=== PATIENT | male | born 1995 | race Caucasian/White ===

== ENCOUNTER 2022-04-17 15:45 | Emergency (ER) | payer BC ==
[2022-04-17] MEDS: Acetaminophen/oxyCODONE 325-5 MG Tab PO ONE (17:04)
[2022-04-17] MEDS: Ketorolac 10 MG Tab PO ONE (17:06)
== END 2022-04-17 17:20 | disposition home or self-care (01) ==
LOC: LL.ED 15:45
DX: S49.92XA Unspecified injury of left shoulder and upper arm, initial encounter (principal); V00.311A Fall from snowboard, initial encounter
CPT/HCPCS: 73020; 99283; A9270